=== PATIENT | male | born 1950 | race African-American/Black ===

== ENCOUNTER 2022-09-25 14:09 | Emergency (ER) | payer OTHER ==
[2022-09-25] MEDS ORDERED: Boostrix 0.5 ML (Tdap) VIAL (>/=7 yrs of age) ONE (15:04)
[2022-09-25] MEDS ORDERED: Lidocaine 1% (PF) 30 ML VIAL ONE (15:04)
[2022-09-25] MEDS ORDERED: Bacitracin 1 PK ONE (16:08)
== END 2022-09-25 16:07 | disposition home or self-care (01) ==
LOC: NAV ERS 14:09
DX: S01.411A Laceration without foreign body of right cheek and temporomandibular area, initial encounter (principal); I10 Essential (primary) hypertension; W26.8XXA Contact with other sharp object(s), not elsewhere classified, initial encounter; Z23 Encounter for immunization
CPT/HCPCS: 12011; 90471; 90715; J2001

== ENCOUNTER 2022-10-02 10:24 | Emergency (ER) | payer OTHER | END 2022-10-02 11:18 | disposition home or self-care (01) | LOC: NAV ERS 10:24 | DX: S01.411D Laceration without foreign body of right cheek and temporomandibular area, subsequent encounter (principal); X58.XXXD Exposure to other specified factors, subsequent encounter; I10 Essential (primary) hypertension ==

== ENCOUNTER 2022-10-20 12:32 | Emergency (ER) | payer OTHER | END 2022-10-20 13:10 | disposition home or self-care (01) | LOC: NAV ERS 12:32 | DX: S01.411D Laceration without foreign body of right cheek and temporomandibular area, subsequent encounter (principal); I10 Essential (primary) hypertension; X58.XXXD Exposure to other specified factors, subsequent encounter | CPT/HCPCS: 99282 ==